=== PATIENT | male | born 1955 | race Caucasian/White ===

== ENCOUNTER → 2023-03-02 | Outpatient (CLI) | payer MEDICARE, OTHER, SELFPAY ==
--- OUTSIDE RECORDS SUMMARY | 2023-03-02 10:30 | XMS RPT_ITS | CCD ---
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 Chino Lewis Primary Care GONZALO Liriano Attending Taran KHAN, CORY Roman Referring Amarjit KHAN, CORY Roman Attending Dr. Chino Dewitt Primary Care Dr. Chino Velarde Primary Care CORY Liriano Referring Amarjit KHAN, CORY Roman Attending Amarjit harvey Medications Completed/Discontinued Medications Medication Drug Class(es) Dates Sig (Normalized) Sig (Original) atorvastatin 20 mg oral tablet (2 sources) HMG-CoA Reductase Inhibitor Start: 05-14-2018 Atorvastatin Calcium 20 MG Oral Tablet Quantity: 90 Refills: 0 Ordered: 22-Nov-2018 DO Start : 14-May-2018 Active sildenafil 100 mg oral tablet (2 sources) Phosphodiesterase 5 Inhibitor Start: 05-15-2018 Sildenafil Citrate 100 MG Oral Tablet Quantity: 8 Refills: 0 Ordered: 15-May-2018 DO Start : 15-May-2018 Active 1 ml testosterone cypionate 200 mg/ml injection (2 sources) Androgen Start: 05-15-2018 Testosterone Cypionate 200 MG/ML Intramuscular Solution Quantity: 10 Refills: 0 Ordered: 15-May-2018 DO Start : 15-May-2018 Active 1 ml triamcinolone acetonide 40 mg/ml injection (1 source) Corticosteroid Start: 08-10-2022 Triamcinolone Acetonide 40 MG/ML Injection Suspension INJECT 1 ML Intra-articular Quantity: 0 Refills: 0 Ordered: 8-Yan-2023 Huan PERESNGonzalo HART Start : 10-Aug-2022 Complete Problems Problem Classification Problem Date Documented Da te Episodic/Chronic Disorders of lipid metabolism (2 sources) Hypercholesterolemi a; Translations: [Pure hypercholesterolemi a] Chronic Osteoarthritis (1 source) Primary osteoarthritis, left shoulder; Translations: [Primary osteoarthritis, left shoulder] Onset: 08-10-2022 Chronic Other connective tissue disease (4 sources) Impingement syndrome of shoulder region; Translations: [Other affections of shoulder region, not elsewhere classified] Episodic Other connective tissue disease (4 sources) Impingement syndrome of left shoulder; Translations: [Impingement syndrome of left shoulder] Onset: 08-10-2022 Episodic Other injuries and conditions due to external causes (2 sources) Unspecified injury of muscle, fascia and tendon of long head of biceps, right arm, subsequent encounter; Translations: [Injury of tendon of long head of right biceps, subsequent encounter] Episodic Other non-traumatic joint disorders (1 source) Disorder of shoulder; Translations: [Other specified disorders of joint, shoulder region] Episodic Sprains and strains (6 sources) Partial thickness rotator cuff tear; Translations: [Other specified aftercare] Episodic Results Test Name Value Interpretation Reference Range Facil ity Vital Signs Date Time Vital Sign Value Performing Clinician Facility 09-07-2022 08:02-0400 Body mass index (BMI) [Ratio] 30.29 kg/m2 Chino Lewis Work Phone: [facility] 300 Work Phone: 09-07-2022 08:02-0400 Body surface area Derived from formula 2.33 m2 Chino Lewis Work Phone: [facility] 300 Work Phone: 09-07-2022 08:02-0400 Body temperature 97.5 [degF] Chino Lewis Work Phone: [facility] 300 Work Phone: 09-07-2022 08:02-0400 Body weight 107.05 kg Chino Lewis Work Phone: [facility] 300 Work Phone: 08-10-2022 08:47-0400 Body mass index (BMI) [Ratio] 31.24 kg/m2 Chino Lewis Work Phone: [facility] 300 Work Phone: 08-10-2022 08:47-0400 Body surface area Derived from formula 2.36 m2 Chino Lewis Work Phone: [facility] 300 Work Phone: 08-10-2022 08:47-0400 Body temperature 97.1 [degF] Chino Lewis Work Phone: [facility] 300 Work Phone: 08-10-2022 08:47-0400 Body weight 110.41 kg Chino Lewis Work Phone: [facility] 300 Work Phone: Encounters Encounter Date Encounter Type Care Provider Facility Start: 09-07-2022 Office outpatient vi sit 10 minutes Chino Lewis Work Phone: [facility] 300 Work Phone: Start: 09-07-[address] Chino Lewis Facility:[id number] Start: 08-10-2022 Patient encounter procedure Chino Lewis Work Phone: [facility] 300 Work Phone: Start: 08-10-[address] Chino Lewis Facility:[id number] Start: 11-26-2017 Patient encounter Gonzalo bennettty:[place] Start: 11-26-2017 End: 11-26-2017 Patient encounter [facility] Procedures Date Procedure Procedure Detail Performing Clinician Arthroplasty of knee Chino Lewis Work Phone: Arthroscopy of shoulder Nader Lewis Work Phone: Simi Chino Lewis Work Phone: Plan of Treatment Date Care Activity Detail Author Start: 09-07-2022 FUV, Provider: Gonzalo Khan, Status: Pen, Time: 8:00 AM [facility]UV, Provider: Gonzalo Khan, Status: Pen, Time: 8:[address] [facility] 300 Work Phone: Payers Date Payer Category Payer Unknown [id number] 1955 Unknown [id number] 1955 Unknown [id number] Medicare [id number] Unknown [id number] Unknown Unknown [id number] Social History Date Type Detail Facility Tobacco smoking status OHIS Unknown if ever smoked [facility] Sex Assigned At Not on file [facility] Consumes alcohol Consumes [facility] Work Phone: NEGATED: Highlighted row Denies Drug use Denies Drug use [facility] 300 Work Phone: History of Present illness Narrative 06-03-2022 Note Date & Type Note Facility 06-03-2022 History of Present illness Narrative L shoulder pain since June, cow rammed into posterior L shoulder, pain sinceAdvil and Ice help some. [facility] 300 Work Phone: History of Present illness Narrative Note Date & Type Note Facility History of Present illness Narrative Lakeshia is a pleasant 67-year-old gentleman here for 1 month follow-up of left shoulder pain and cortisone injection.Significnt improvement since last visit, states near 100% improvement.No aggravating sx, able to do needed and desired tasks with no symptom aggravation. No difficulty sleeping. No OTC meds needed for symptom control. Patient did perform for a few weeks and has tapered off since. HEP. 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 * Pain rate is a 2 * Ice * 2 Advil once a day * No sling * went over meds * and confirmed allergies * Patient is been seen today for: LEFT SHOULDER PAIN * Onset: N/A * Date of injury: N/A * Date of surgery: N/A * Improved: YES * Pain: PATIENT STATES HE HAS PAIN OCCASIONALLY * Pain Meds taken: NONE * Ice/Heat applied: NONE * Brace worn: N/A * Last Xray: 08/10/22 * Last Injection: 08/10/22 * Referred by: N/A Additional Source Comments (unrecognized sect ion and content) No Status Records FoundNo Status Records FoundNo Status Records FoundNo Status Records FoundNo Status Records Found INFORMATION SOURCE (unrecogn ized section and content) DATE CREATED AUTHOR AUTHOR'S ORGANIZ ATION 07/27/2018 [facility] DATE CREATED AUTHOR AUTHOR'S ORGANIZ ATION 08/16/2022 [facility] DATE CREATED AUTHOR AUTHOR'S ORGANIZ ATION 09/07/2022 [facility] DATE CREATED AUTHOR AUTHOR'S ORGANIZ ATION 09/07/2022 [employer] FOR RECORDS PERTAINING TO PATIENTS WHO ARE OR HAVE BEEN ENROLLED IN A CHEMICAL DEPENDENCY/SUBSTANCEABUSE PROGRAM, SOME INFORMATION MAY BE OMITTED. This clinical summary was aggregated from multiple sources. Caution should be exercised in using it in the provision of clinical care. This summary normalizes information from multiple sources, and as a consequence, information in this document may materially change the coding, format and clinical context of patient data. In addition, data may be omitted in some cases. CLINICAL DECISIONS SHOULD BE BASED ON THE PRIMARY CLINICAL RECORDS. [facility] [employer] [facility] provides no warranty or guarantee of the accuracy or completeness of information in this document.
[2023-03-02 12:33] LABS: Absolute Lymphocyte Count 1.51 X10^3/uL (0.83-4.51); Absolute Neutrophil Count 4.1 X10^3/uL (2.0-7.7); Basophil# 0.06 X10^3/uL; Basophil% 0.9 % (0-1); Eosinophil# 0.16 X10^3/uL; Eosinophils% 2.5 % (0-5); Hematocrit 44.5 % (40-54); Hemoglobin 14.5 g/dL (13.0-16.5); Lymphocyte # 1.51 X10^3/ul (0.83-4.51); Lymphocyte % 23.9 % (19-41); Mean Corp Hgb Conc 32.6 g/dL (32-36); Mean Corpuscular Hgb 29.7 pg (27.0-32.0); Mean Corpuscular Volume 91.2 fL (80-94); Mean Platelet Vol. 11.4 fl (6.2-12.0); Monocyte# 0.53 X10^3/uL; Monocyte% 8.4 % (0-10); NRBC Flagged by Analyzer 0 % (0-5); Neutrophil # 4.06 X10^3/uL (2.7-7.7); Neutrophil % 64.1 % (47-70); Platelet Count 245 K/mm3 (150-450); RBC Distribution Width CV 12.8 % (11.6-14.6); RBC Distribution Width SD 42.4 fl (35.1-43.9); Red Blood Count 4.88 M/mm3 (4.6-6.2); White Blood Count 6.3 K/mm3 (4.4-11.0)
[2023-03-02 12:43] LABS: ALB/GLOB Ratio 1.2 RATIO (0.9-2.4); AST(SGOT) 24 U/L (15-37); Alanine Aminotransfer ALT/SGPT 34 U/L (16-61); Albumin, Serum 4.2 g/dL (3.2-5.0); Alkaline Phosphatase 93 U/L (45-117); Anion Gap 8 (5-15); BUN 18 mg/dL (7-18); Calcium,Total 9.1 mg/dL (8.5-10.1); Chloride 106 mmol/L (98-107); Cholesterol 222 mg/dL (200); Creatinine, Serum 1.29 mg/dL (0.70-1.30); EST Glomerular Filtration Rate 59 mL/min (>60); Est Glom Filt Rate - Afr Amer 72 mL/min (>60); Globulin 3.5 g/dL (2.2-4.2); Glucose 96 mg/dL (74-106); High Density Lipoprotein 67 mg/dL; PSA,Total - Annual Screen 0.32 ng/mL (0.00-4.00); Potassium 4.6 mmol/L (3.5-5.1); Protein, Total 7.7 g/dL (6.4-8.2); Sodium Level 141 mmol/L (136-145); Triglycerides 147 mg/dL; Very Low Density Lipoprotein 29 mg/dL (5-40)
== END | disposition home or self-care (01) ==
LOC: MTLAB 09:53
PROVIDERS: PCP Family Medicine; Referring Provider Family Medicine; Visit Provider Family Medicine
DX: Z00.00 Encounter for general adult medical examination without abnormal findings (principal); E78.5 Hyperlipidemia, unspecified; K21.9 Gastro-esophageal reflux disease without esophagitis
CPT/HCPCS: 36415; 80053; 80061; 84153; 85025; G0103